=== PATIENT | female | born 1965 | race Caucasian/White ===

== ENCOUNTER → 2021-04-17 | Outpatient (CLI) | payer BC ==
[~2021-04-17] MED LIST: COZAAR100 MG PO; GLUCOPHAGE1000 MG PO; GLUCOTROL 10 MG10 MG PO; IBUPROFEN600 MG PO; IRON325 M1 PO; LANTUS100 UNIT/1 SQ; NORCO 5-325 TA1 EACH PO; NORVASC 5 MG TAB5 MG PO; SYNTHROID150 MCG PO; VENLAFAXINE HC150 M1 PO; VIT D PO; ZEBETA 5 MG TAB5 MG PO
== END ==
LOC: KOH-I 09:30
DX: E89.0 Postprocedural hypothyroidism (principal); C73 Malignant neoplasm of thyroid gland
CPT/HCPCS: 76536

== ENCOUNTER → 2022-04-26 | Outpatient (CLI) | payer BC | LOC: US 14:04 | DX: C73 Malignant neoplasm of thyroid gland (principal) | CPT/HCPCS: 76536 ==